=== PATIENT | female | born 1960 | race Caucasian/White ===

== ENCOUNTER 2024-08-19 15:25 | Observation (INO) | payer MEDICARE, OTHER ==
[~2024-08-19 15:25] MED LIST: Iopamidol 370 76% 100 ML VIAL ONE
[2024-08-19 15:56] LABS: #Basophils 0.05 10x3/uL (0.0-0.2); #Eosinophils 0.27 10x3/uL (0.0-0.5); #Monocytes 0.54 10x3/uL (0.0-1.1); #Neutrophils 3.55 10x3/uL (1.5-8.4); %Basophils 0.7 % (0.0-2.0); %Monocytes 8.1 % (0.0-10.0); %Neutrophils 53.1 % (40.0-75.0); Hematocrit 40.9 % (34.9-44.5); Hemoglobin 13.2 g/dL (12.0-15.5); Mean Corpuscular HGB CONC 32.3 g/dL (32.0-36.0); Mean Corpuscular Hemoglobin 28.3 pg (27.0-33.0); Mean Corpuscular Volume 87.8 fL (81.6-98.3); Mean Platelet Volume 8.6 fL (7.4-10.4); Platelet Count 256 10x3/uL (150-450); RBC Distribution Width 12.7 % (11.5-14.5); Red Blood Cell (RBC) Count 4.66 10x6/uL (3.90-5.03)
[2024-08-19 16:01] LABS: INR-International Normal Ratio 0.9; PTT 28.8 sec (22.0-33.0); Prothrombin Time 10.3 sec (9.5-12.1)
[2024-08-19 16:05] LABS: ALT (SGPT) 49 U/L (8-55); AST (SGOT) 35 U/L (5-34); Albumin 4.3 g/dL (3.4-4.8); Alkaline Phosphatase 104 U/L (40-110); Anion Gap 14 mmol/L (10-20); BUN (Urea Nitrogen) 15 mg/dL (9.8-20.1); Bilirubin, Total 0.8 mg/dL (0.2-1.2); Calc. Creatinine Clearance 0 mL/min (70-130); Calcium 9.8 mg/dL (7.8-10.44); Carbon Dioxide 26 mmol/L (23-31); Chloride 104 mmol/L (98-107); Estimated GFR 63; Globulin 3.5 g/dL (2.4-3.5); Glucose 87 mg/dL (80-115); Potassium 4.2 mmol/L (3.5-5.1); Protein, Total 7.8 g/dL (5.8-8.1); Sodium 140 mmol/L (136-145)
[2024-08-19 16:11] LABS: Troponin I Less than 0.010 ng/mL (< 0.028)
[2024-08-19] MEDS ORDERED: Aspirin Chewable 81 MG TAB ONE (16:39)
[2024-08-19] MEDS ORDERED: Acetaminophen 650 MG Suppository PR PRN (16:42)
[2024-08-19] MEDS ORDERED: Ondansetron ODT 4 MG TAB PO PRN (16:42)
[2024-08-19] MEDS ORDERED: traMADol HCl 50 MG TAB PO PRN ×2 (16:42)
[2024-08-19 18:16] VITALS: BMI 34.0
[2024-08-19] MEDS: Atorvastatin Calcium 40 MG TAB PO SCH (20:48)
[2024-08-19] MEDS: Acetaminophen 325 MG TAB PO PRN (21:11)
[2024-08-20 04:50] LABS: #Basophils 0.05 10x3/uL (0.0-0.2); #Eosinophils 0.35 10x3/uL (0.0-0.5); #Monocytes 0.52 10x3/uL (0.0-1.1); %Basophils 0.9 % (0.0-2.0); %Eosinophils 6.3 % (0.0-6.0); %Lymphocytes 34.5 % (18.0-47.0); %Monocytes 9.4 % (0.0-10.0); %Neutrophils 48.5 % (40.0-75.0); Hematocrit 37.6 % (34.9-44.5); Hemoglobin 12.4 g/dL (12.0-15.5); Mean Corpuscular Hemoglobin 28.9 pg (27.0-33.0); Mean Corpuscular Volume 87.6 fL (81.6-98.3); Mean Platelet Volume 8.5 fL (7.4-10.4); Platelet Count 228 10x3/uL (150-450); RBC Distribution Width 12.7 % (11.5-14.5); Red Blood Cell (RBC) Count 4.29 10x6/uL (3.90-5.03); White Blood Cell (WBC) Count 5.56 10x3/uL (3.5-10.5)
[2024-08-20 05:09] LABS: Anion Gap 11 mmol/L (10-20); BUN (Urea Nitrogen) 14 mg/dL (9.8-20.1); Calc. Creatinine Clearance 86 mL/min (70-130); Calcium 9.5 mg/dL (7.8-10.44); Carbon Dioxide 26 mmol/L (23-31); Cardiac Risk 3.3 (Less than 4.5); Chloride 106 mmol/L (98-107); Cholesterol 163 mg/dl (< 200 Desired); Estimated GFR 74; Glucose 91 mg/dL (80-115); HDL Cholesterol 50 mg/dL (>60 Neg Risk); LDL Cholesterol, Calculated 96 mg/dL; Potassium 4.1 mmol/L (3.5-5.1); Sodium 139 mmol/L (136-145); Triglycerides 85 mg/dL (Less than 150)
[2024-08-20] MEDS: Enoxaparin 40 MG (0.4 mL) SYRINGE SC SCH (09:09)
[2024-08-20] MEDS: Aspirin 81 mg Enteric Coated Tablet PO SCH (09:09)
[2024-08-20 15:36] VITALS: BP 128/79; TEMP 98.3
== END 2024-08-20 14:40 | disposition home or self-care (01) ==
LOC: SUATTDRO 15:25 → CSHERS 15:25 → CSHTELE 16:39
PROVIDERS: ADMIT Family Medicine; ATTEND Family Medicine
PROC: B24BZZZ Ultrasonography of Heart with Aorta (ICD-10-PCS; principal; 2024-08-20)
DX: G51.0 Bell's palsy (principal); I10 Essential (primary) hypertension; E03.9 Hypothyroidism, unspecified; E78.5 Hyperlipidemia, unspecified; Z90.49 Acquired absence of other specified parts of digestive tract; Z87.59 Personal history of other complications of pregnancy, childbirth and the puerperium; Z79.890 Hormone replacement therapy; Z79.899 Other long term (current) drug therapy; R47.81 Slurred speech
CPT/HCPCS: 0042T; 70450; 70551; 71045; 80048; 80053; 80061; 82550; 82962; 83090; 84484; 85025 ×2; 85610; 85730; 93005; 93306; 94760 ×2; 97116; 97530; 99285; G0378 ×3; Q9967; 36415; 36416